=== PATIENT | male | born 1950 | race Hispanic/Latino ===

== ENCOUNTER 2023-12-17 08:22 | Day surgery (SDC) | payer OTHER ==
[~2023-12-17] VITALS: Ht 172.7 cm; Wt 81.2 kg
[2023-12-17] VITALS (13 sets, daily range): BP systolic 136–167; BP diastolic 68–116; PULSE 47–65; RESP 15–16; TEMP 97.3–98
[2023-12-17] MEDS ORDERED: DUTA0.5C37 PO (08:39)
[2023-12-17] MEDS ORDERED: ROSU10TA72 PO (08:39)
[2023-12-17] MEDS ORDERED: proPOFol 10 MG/ML 20ML VIAL IV ONE ×2 (08:43)
[2023-12-17] MEDS: 0.9%NACL 1000ML 1,000 ML IV ONE (08:47)
== END 2023-12-17 10:50 | disposition home or self-care (01) ==
LOC: DAH 08:22 → ENDO 08:22
PROVIDERS: ATTEND Internal Medicine Gastroenterology
DX: Z12.11 Encounter for screening for malignant neoplasm of colon (principal); D12.2 Benign neoplasm of ascending colon; K29.50 Unspecified chronic gastritis without bleeding; K57.30 Diverticulosis of large intestine without perforation or abscess without bleeding; K64.9 Unspecified hemorrhoids; E78.00 Pure hypercholesterolemia, unspecified; K21.9 Gastro-esophageal reflux disease without esophagitis; Z79.899 Other long term (current) drug therapy
CPT/HCPCS: 45380; 43239; J7030 ×2; J2704 ×2; A4620; A4215 ×2; A4223; A4657 ×2; A4222; A4221; A4663; A4606; J3490